=== PATIENT | male | born 1945 | race Caucasian/White ===

== ENCOUNTER → 2019-07-16 | Outpatient (CLI) | payer MEDICARE, BC ==
[~2019-07-16] MED LIST: CEPH500 PO; Cerefolin Tabl1 EACH PO; Entocort EC 3 mg3 MG PO; FAMO20 PO; HYDACE5 PO; HYDPAM50 PO; MELA3 PO; MULVIT PO; NAPR220; OXYACE5T PO; Percocet 5-3251 EACH PO; RXHYDACE PO; Saw Palmetto80 MG PO; TAMS.4ER PO
[2019-07-16 20:41] LABS: Adenovirus F 40/41 Not Detected (NOT DETECT); Astrovirus Not Detected (NOT DETECT); Campylobacter Sp Not Detected (NOT DETECT); Cryptosporidium Not Detected (NOT DETECT); Cyclospora Cayetanensis Not Detected (NOT DETECT); E. Coli O157 Not Detected (NOT DETECT); Entamoeba Histolytica Not Detected (NOT DETECT); Enteroaggregative E. coli-EAEC Not Detected (NOT DETECT); Enteropathogenic E. coli-EPEC Not Detected (NOT DETECT); Enterotoxigenic E. coli-ETEC Not Detected (NOT DETECT); Giardia Lamblia Not Detected (NOT DETECT); Norovirus GI/GII Not Detected (NOT DETECT); Plesiomonas Shigelloides Not Detected (NOT DETECT); Rotavirus A Not Detected (NOT DETECT); Salmonella Sp Not Detected (NOT DETECT); Sapovirus Not Detected (NOT DETECT); Shiga Toxin-prod E. coli-STEC Not Detected (NOT DETECT); Shigella/Enteroin E. coli-EIEC Not Detected (NOT DETECT); Vibrio Cholerae Not Detected (NOT DETECT); Vibrio Sp Not Detected (NOT DETECT); Yersinia Enterocolitica Not Detected (NOT DETECT)
== END | disposition home or self-care (01) ==
LOC: LAB 12:58 → LAB SHORT 12:58
PROVIDERS: Naturopath
DX: R19.7 Diarrhea, unspecified (principal)
CPT/HCPCS: 0097U; 87177; 87209; 87338

== ENCOUNTER → 2019-07-17 | Outpatient (CLI) | payer MEDICARE, BC | END | disposition home or self-care (01) | LOC: LAB SHORT 06:15 → LAB 06:15 | DX: R19.7 Diarrhea, unspecified (principal) | CPT/HCPCS: 87177; 87209; 87329 ==

== ENCOUNTER 2023-02-16 19:01 | Emergency (ER) | payer MEDICARE, BC ==
[~2023-02-16] VITALS: Ht 180.3 cm; Wt 64.4 kg
[2023-02-16] MEDS ORDERED: GLIP10ER PO (19:32)
[2023-02-16] MEDS ORDERED: Flomax0.4 MG (19:33)
[2023-02-16 19:37] LABS: BASOPHILS ABSOLUTE AUTO 0.06 K/mm3 (0.00-0.23); BASOPHILS PERCENT AUTO 1 % (0-2); EOSINOPHILS ABSOLUTE AUTO 0.24 K/mm3 (0.00-0.68); EOSINOPHILS PERCENT AUTO 2 % (0-6); Hematocrit 44.4 % (37.0-53.0); Hemoglobin 15.4 g/dL (13.5-17.5); IMMATURE GRAN ABSOLUTE AUTO 0.04 K/mm3 (0.00-0.10); IMMATURE GRAN PERCENT AUTO 0 % (0-1); LYMPHOCYTES ABSOLUTE AUTO 3.06 K/mm3 (0.84-5.20); LYMPHOCYTES PERCENT AUTO 23 % (21-46); MONOCYTES ABSOLUTE AUTO 1.14 K/mm3 (0.16-1.47); MONOCYTES PERCENT AUTO 9 % (4-13); Mean Corpuscular HGB 34.2 pg (26.0-34.0); Mean Corpuscular HGB Conc 34.7 g/dL (31.5-36.5); Mean Corpuscular Volume 99 fL (80-100); Mean Platelet Volume 11.3 fL (9.1-12.4); NEUTROPHILS ABSOLUTE AUTO 8.64 K/mm3 (1.96-9.15); NEUTROPHILS PERCENT AUTO 66 % (41-73); Platelet Count 216 K/mm3 (150-400); RDW Coefficient Variation 12.7 % (11.7-14.2); RDW Standard Deviation 45.3 fL (35.1-46.3); White Blood Cell Count 13.18 K/mm3 (4.00-11.30)
[2023-02-16 19:47] LABS: Base Excess Venous 0.3 mmol/L; Bicarbonate Venous 22.7 mmol/L (24.0-30.0); PCO2 Venous 50.8 mmHg (38-42); pH Blood Venous 7.32 (7.34-7.37)
[2023-02-16 20:00] LABS: Albumin, Blood 3.7 g/dL (3.4-5.0); Albumin/Globulin Ratio 1.3 (0.8-1.8); Bilirubin, Total 0.6 mg/dL (0.1-1.0); Bun/Creatinine Ratio 27.9 (12.0-20.0); Calcium, Blood 9.5 mg/dL (8.5-10.1); Creatinine, Blood 1.22 mg/dL (0.60-1.20); Globulin, Blood 2.9 g/dL (2.2-4.0); Potassium, Blood 4.1 mmol/L (3.5-5.5); Thyroid Stimulating Hormone 1.35 uIU/mL (0.360-4.800); Total Protein, Blood 6.6 g/dL (6.4-8.2)
[2023-02-16 21:56] VITALS: BP 152/58
== END 2023-02-16 22:28 | disposition short-term general hospital (02) ==
LOC: ER 19:01
PROVIDERS: Emergency Medicine
DX: I44.2 Atrioventricular block, complete (principal); E11.22 Type 2 diabetes mellitus with diabetic chronic kidney disease; N18.9 Chronic kidney disease, unspecified; R55 Syncope and collapse; F17.200 Nicotine dependence, unspecified, uncomplicated; Z79.899 Other long term (current) drug therapy
CPT/HCPCS: 70450; 71045; 80053; 82803; 83880; 84443; 84484; 85025; 93005; 93010; 96360; 99285-25; J7030

== ENCOUNTER 2024-10-20 03:53 | Emergency (ER) | payer MEDICARE, BC ==
[~2024-10-20] VITALS: Ht 172.7 cm; Wt 68.0 kg
[~2024-10-20 03:53] MED LIST changes: +Flomax0.4 MG; +GLIP10ER PO
[2024-10-20 04:26] LABS: BASOPHILS ABSOLUTE AUTO 0.02 K/mm3 (0.00-0.23); BASOPHILS PERCENT AUTO 0 % (0-2); EOSINOPHILS ABSOLUTE AUTO 0.03 K/mm3 (0.00-0.68); EOSINOPHILS PERCENT AUTO 0 % (0-6); Hematocrit 44.7 % (37.0-53.0); Hemoglobin 15.5 g/dL (13.5-17.5); IMMATURE GRAN ABSOLUTE AUTO 0.08 K/mm3 (0.00-0.10); IMMATURE GRAN PERCENT AUTO 1 % (0-1); LYMPHOCYTES ABSOLUTE AUTO 1.75 K/mm3 (0.84-5.20); LYMPHOCYTES PERCENT AUTO 16 % (21-46); MONOCYTES ABSOLUTE AUTO 1.24 K/mm3 (0.16-1.47); MONOCYTES PERCENT AUTO 11 % (4-13); Mean Corpuscular HGB Conc 34.7 g/dL (31.5-36.5); Mean Corpuscular Volume 98 fL (80-100); Mean Platelet Volume 11.3 fL (9.1-12.4); NEUTROPHILS ABSOLUTE AUTO 8.01 K/mm3 (1.96-9.15); NEUTROPHILS PERCENT AUTO 72 % (41-73); Platelet Count 215 K/mm3 (150-400); RDW Coefficient Variation 12.6 % (11.7-14.2); RDW Standard Deviation 45.6 fL (35.1-46.3); Red Blood Cell Count 4.56 M/mm3 (4.30-5.90); White Blood Cell Count 11.13 K/mm3 (4.00-11.30)
[2024-10-20 04:51] LABS: Albumin, Blood 3.1 g/dL (3.4-5.0); Albumin/Globulin Ratio 0.9 (0.8-1.8); Bilirubin, Total 0.9 mg/dL (0.1-1.0); Bun/Creatinine Ratio 28.8 (12.0-20.0); Calcium, Blood 9.3 mg/dL (8.5-10.1); Creatinine, Blood 0.87 mg/dL (0.60-1.20); Globulin, Blood 3.6 g/dL (2.2-4.0); Total Protein, Blood 6.7 g/dL (6.4-8.2)
[2024-10-20] MEDS ORDERED: MethylPREDNISolone Sod Succ 125 MG Vial IV ONE (06:25)
[2024-10-20] MEDS ORDERED: Albuterol 2.5 MG/3 ML VIAL INH SCH (06:25)
[2024-10-20] MEDS ORDERED: GLIP5ER PO (06:28)
[2024-10-20] MEDS ORDERED: TAMSULOSIN HCL0.4 M1 PO (06:28)
[2024-10-20] MEDS ORDERED: BUDESONIDE EC3 M5 PO (06:29)
[2024-10-20] MEDS ORDERED: Tessalon200 MG PO (06:29)
[2024-10-20] MEDS ORDERED: PRAV20 PO (06:29)
[2024-10-20] MEDS ORDERED: MONDOXYNE NL100 MG PO (06:29)
[2024-10-20] MEDS ORDERED: GuaiFENesin 600 MG TabCR PO ONE (06:30)
[2024-10-20 07:00] VITALS: BP 140/74
[2024-10-20] MEDS ORDERED: PRED20 PO (08:07)
[2024-10-20] MEDS ORDERED: GUAI600T33 PO (08:07)
== END 2024-10-20 08:50 | disposition home or self-care (01) ==
LOC: ER 03:53
PROVIDERS: Emergency Medicine
DX: J44.1 Chronic obstructive pulmonary disease with (acute) exacerbation (principal); J10.1 Influenza due to other identified influenza virus with other respiratory manifestations; N40.0 Benign prostatic hyperplasia without lower urinary tract symptoms; F17.210 Nicotine dependence, cigarettes, uncomplicated; Z79.84 Long term (current) use of oral hypoglycemic drugs; Z79.899 Other long term (current) drug therapy
CPT/HCPCS: 71046; 80053; 84484; 85025; 93005; 93010; 94644; 94664; 96374; 99285-25; A9270; J2919